=== PATIENT | female | born 1980 | race Caucasian/White ===

== ENCOUNTER → 2020-01-02 | Outpatient (CLI) | payer BC, OTHER | LOC: RAD 07:14 | DX: M47.817 Spondylosis without myelopathy or radiculopathy, lumbosacral region (principal); M25.78 Osteophyte, vertebrae; M41.86 Other forms of scoliosis, lumbar region ==

== ENCOUNTER → 2020-02-09 | Outpatient (CLI) | payer BC, OTHER | LOC: CAT 11:04 | DX: M51.37 Other intervertebral disc degeneration, lumbosacral region (principal); M47.816 Spondylosis without myelopathy or radiculopathy, lumbar region; G89.29 Other chronic pain; M48.07 Spinal stenosis, lumbosacral region; M25.78 Osteophyte, vertebrae ==